=== PATIENT | male | born 1955 | race Caucasian/White ===

== ENCOUNTER 2025-06-05 09:16 | Inpatient (IN) | payer MEDICARE, SELFPAY ==
[2025-06-05] VITALS (20 sets, daily range): BP systolic 126–219; BP diastolic 54–111; PULSE 48–84; RESP 12–22; TEMP 36.6–37.1; O2SAT 91–99; BMI 25.0
--- NOTE | 2025-06-05 | ECHO_ITS ---
Patient Info Name: Renato Rodriguez Age: 70 years : 1955 Gender: Male Ht: 67 in Wt: 167 lbs BSA: 1.91 m2 BP: 179 / 95 mmHg Heart Rhythm: Sinus Rhythm Technical Quality: Good Exam Date: 06/05/2025 2:52 PM Patient Status: I Admit Date: 06/05/2025 Exam Type: CA echo doppler color flow Complete two-dimensional, color flow and Doppler transthoracic echocardiogram is performed. Staff Referring Physician: Jason Arita MD Base Filler: Mya Javier Attending Provider: Dudley Bolaños Summary 1. Complete two-dimensional, color flow and Doppler transthoracic echocardiogram is performed. 2. Left ventricular hypertrophy with preserved systolic function. 3. Grade 1 diastolic noncompliance. 4. Suboptimally visualized aortic valve appears to be mildly stenotic. 5. Trivial amount of pericardial fluid. Left Ventricle Left ventricular chamber dimension is normal. There is mild concentric increased left ventricular wall thickness. The left ventricular diastolic function is grade I diastolic dysfunction. Right Ventricle Right ventricular chamber dimension is normal. Left Atria Left atrial chamber dimension is normal. Right Atria Right atrial chamber dimension is normal. Aortic Valve The aortic valve is trileaflet. There is mild aortic valve sclerosis. There is mild aortic valve stenosis with a peak velocity of 262 cm/s, mean gradient of 15 mmHg, and aortic valve area of 1.7 cm2. Pulmonic Valve The pulmonic valve is not well visualized. Mitral Valve The mitral valve has normal leaflets. There is trace mitral valve regurgitation. Tricuspid Valve The tricuspid valve leaflets are normal. Pericardium/Pleural There is trivial pericardial effusion. Aorta The aortic root size at the sinus of Valsalva is normal. Left Ventricular Outflow Tract Name Value Normal LVOT 2D LVOT Diameter 2.0 cm LVOT Doppler LVOT Peak Velocity 137 cm/s LVOT Peak Gradient 6 mmHg LVOT Mean Gradient 4 mmHg LVOT VTI 37 cm LVOT VTI/AV VTI Ratio 0.6 LVOT Stroke Volume 115 ml LVOT CO 12.6 l/min LVOT CI 6.6 l/min/m2 Pulmonic Valve Name Value Normal RVOT Doppler RVOT Peak Velocity 52 cm/s RVOT Peak Gradient 1 mmHg PV Doppler PV Peak Velocity 123 cm/s PV Peak Gradient 6 mmHg Mitral Valve Name Value Normal MV Diastolic Function MV E Peak Velocity 74 cm/s MV A Peak Velocity 86 cm/s MV E/A 0.9 MV Decel Time (PW) 316 ms MV Annular TDI MV E/e' (Septal) 10.9 MV E/e' (Lateral) 12.0 MV E/e' (Average) 11.4 Aortic Valve Name Value Normal AV Doppler AV Peak Velocity 262 cm/s AV Peak Gradient 26 mmHg AV Mean Gradient 15 mmHg AV VTI 67 cm AV Area (Cont Eq VTI) 1.7 cm2 >=3.0 AV Area (Cont Eq Felipe) 1.6 cm2 AV DI (Felipe) 0.52 AV Regurgitation 2D LVOT Area 3.1 cm2 Ventricles Name Value Normal LV Dimensions 2D/MM IVS Diastolic Thickness (2D) 0.9 cm 0.6-1.0 LVID Diastole (2D) 4.9 cm 4.2-5.8 LVIW Diastolic Thickness (2D) 1.2 cm 0.6-1.0 LVID Systole (2D) 3.4 cm 2.5-4.0 LVOT Diameter 2.0 cm LV Mass (2D Cubed) 183.41 g 88.00-224.00 LV Mass Index (2D Cubed) 96 g/m2 49-115 Relative Wall Thickness (2D) 0.49 <=0.42 LV Fractional Shortening/Ejection Fraction 2D/MM LV Fractional Shortening (2D) 31 % 25-43 LV EF (2D Teichholz) 58 % LV Diastolic Volume (4C MOD) 111 ml LV EF (4C MOD) 51 % LV Diastolic Volume (2C MOD) 124 ml LV EF (2C MOD) 58 % LV Diastolic Volume (BP MOD) 119 ml 62-150 LV Diastolic Volume Index (BP MOD) 62 ml/m2 34-74 LV Systolic Volume (BP MOD) 54 ml 21-61 LV Systolic Volume Index (BP MOD) 28 ml/m2 11-31 LV EF (BP MOD) 55 % 52-72 LV Diastolic Length (4C) 9.0 cm LV Systolic Length (4C) 8.0 cm LV Stroke Volume (4C MOD) 56 ml Atria Name Value Normal LA Dimensions LA Volume (4C A-L) 34 ml LA Volume (BP A-L) 36 ml RA Dimensions RA Systolic Major [place] Length (4C) 5.5 cm 2.1-2.7 RA Area (4C) 19.3 cm2 <=18.0 Report Signatures
--- NOTE | ~2025-06-05 | XR_ITS ---
CHEST RADIOGRAPH, PA AND LATERAL CLINICAL HISTORY: UPPER CHEST PRESSURE . COMPARISON: None available TECHNIQUE: PA and lateral views of the chest. FINDINGS The cardiomediastinal silhouette is unremarkable. The lungs are clear. IMPRESSION: No focal infiltrate or effusion. Reviewed, dictated and finalized at location A.
--- NOTE | 2025-06-05 09:18 | ECG_ITS ---
Test Date: 2025-06-05 09:24:44 Measurements Intervals [place] Rate: 73 P: 60 FL: 165 QRS: 84 QRSD: 102 T: 72 QT: 371 QTc: 410 Interpretive Statements SINUS RHYTHM ANTEROSEPTAL MYOCARDIAL INFARCTION , OF INDETERMINATE AGE Electronically Signed On 06-05-2025 17:25:37 CDT by Vinicius Cehema D.O
[2025-06-05 09:35] LABS: Hematocrit 47.3 % (42.0-52.0); Hemoglobin 15.8 g/dL (14.0-18.0); Immature Granulocyte Percent A 0.4 % (0-0.5); Lymphocytes Absolute Auto 1.30 K/mm3 (0.9-3.2); Mean Corpuscular HGB Conc 33.4 g/dl (32-36); Mean Corpuscular Hemoglobin 30.4 pg (26-34); Mean Corpuscular Volume 91.1 fl (80-100); Nucleated Red Blood Cells Absolute Auto 0.000 K/mm3 (0.0-0.012); Nucleated Red Blood Cells Perc 0.0 % (0.0-0.2); Platelet Count Result 326 k/mm3 (150-375); Red Blood Count 5.19 M/mm3 (4.6-6.20); White Blood Count 8.0 K/mm3 (4.5-10.0)
[2025-06-05 09:48] LABS: INR 1.0; Prothrombin Time 13.0 Seconds (11.1-14.7)
[2025-06-05 09:50] LABS: Partial Thromboplastin Time 29.8 Seconds (22.3-36.8)
[2025-06-05 09:57] LABS: Alanine Aminotransferase 20 U/L (6-50); Albumin Level 4.3 g/dL (3.5-5.1); Alkaline Phosphatase 50 U/L (38-126); Anion Gap 7 mmol/L (4-12); Aspartate Amino Transferase 25 U/L (17-59); Bilirubin,Total 0.6 mg/dL (0.2-1.3); Blood Urea Nitrogen 13 mg/dL (9-20); Calcium 9.5 mg/dL (8.4-10.2); Carbon Dioxide 28 mmol/L (22-30); Chloride 104 mmol/L (98-107); Estimated CRCL calculation 62 ml/min; Estimated Glomerular Filt Rate > 60; Glucose 134 mg/dL (65-110); Lipase 205 U/L (23-300); Potassium 4.3 mmol/L (3.4-5.0); Sodium 139 mmol/L (137-145); Total Protein 7.6 g/dL (6.3-8.2)
[2025-06-05 10:06] LABS: Troponin I 0.056 ng/mL (0.000-0.034)
--- NOTE | 2025-06-05 10:07 | ED.CHESTPAIN ---
HPI - Chest Pain General Chief Complaint: Chest Pain Stated Complaint: CP Time Seen by Provider: 06/05/25 09:28 History of Present Illness HPI narrative: Patient is a 70-year-old male who presents ER with chest pain. Reports he has been developing exertional chest pain over last 2 weeks. When he walks up a hill or up stairs or out to the car he develops pressure that radiates to shoulders. He will then sit down for 1-2 minutes and symptoms go away. No history of AL in the past. He is a daily smoker. No chest pain currently. No nausea or diaphoresis. Related Data Home Medications ?Medication ?Instructions ?Recorded ?Confirmed ?Last Taken ?Type No Home Medications 06/05/25 06/05/25 Unknown History Allergies Allergy/AdvReac Type Severity Reaction Status Date / Time acetaminophen (From Percocet) Allergy Intermediate Itching Verified 06/05/25 09:35 oxycodone (From Percocet) Allergy Intermediate Itching Verified 06/05/25 09:35 Review of Systems Review of Systems: All systems reviewed & are unremarkable except as noted in HPI and below Constitutional: Constitutional: Reports no additional constitutional complaints Cardiovascular: Cardiovascular: Reports no additional cardiovascular complaints Respiratory: Respiratory: Reports no additional respiratory complaints Gastrointestinal: Gastrointestinal: Reports no additional gastrointestinal complaints Musculoskeletal: Musculoskeletal: Reports no additional musculoskeletal complaints PMFSH Past Medical History Medical History (Updated 06/05/25 @ 19:42 by Jason Arita MD) No pertinent past medical history Surgical History Surgical History (Updated 06/05/25 @ 19:39 by Jason Arita MD) No history of previous surgery Social History Social History Smoking packs per day: 0.5 Smoking cigarettes per day: 10.0 Years smoked: 15 Smoking pack-years: 7.50 Smoking status: Current every day smoker Tobacco type: cigarettes Lack of Transportation: No Lack of Food: Never True Current Housing: I Have Housing Concerned About Future Housing: No Difficulty Paying Gas/Electric Bills: No Difficulty Paying for Meds: No Currently Unemployed: No Education: High School Diploma/GED Difficulty w/ Childcare or Family Care: No Spiritual care concerns: No Exam Narrative: GENERAL: Well-appearing, well-nourished, and in no acute distress. HEAD: Normocephalic, atraumatic. ENT: Mucous membranes moist. NECK: Supple. CHEST: Clear to auscultation. No respiratory distress. HEART: Regular rate and rhythm. Normal peripheral pulses. ABDOMEN: Soft, nontender, nondistended. EXTREMITIES: Normal range of motion. No edema. SKIN: Warm, dry, no rash. NEURO: Alert and oriented x3. PSYCH: Normal mood and affect. Course Course Emergency Course: 1234: Dr. Arguelles has seen the patient and would like him on a heparin gtt. Admit to hospitalist service. Vital Signs Vital signs: Vital Signs Temperature 97.9 F 06/05/25 09:23 Pulse Rate 82 06/05/25 09:23 Respiratory Rate 16 06/05/25 09:23 Blood Pressure 215/97 H 06/05/25 09:23 Pulse Oximetry 97 06/05/25 09:23 Oxygen Delivery Room Air 06/05/25 09:23 Temperature 98.1 F 06/05/25 15:50 Pulse Rate 78 06/05/25 18:00 Respiratory Rate 22 H 06/05/25 15:50 Blood Pressure 185/81 H 06/05/25 16:24 Pulse Oximetry 97 06/05/25 15:50 Oxygen Delivery Room Air 06/05/25 09:32 MDM - Chest Pain Lab Data 06/05/25 09:26 06/05/25 09:26 Labs: Lab Results 06/05/25 Range/Units 09:26 WBC 8.0 (4.5-10.0) K/mm3 RBC 5.19 (4.6-6.20) M/mm3 Hgb 15.8 (14.0-18.0) g/dL Hct 47.3 (42.0-52.0) % MCV 91.1 (80-100) fl MCH 30.4 (26-34) pg MCHC 33.4 (32-36) g/dl RDW 12.8 (11.5-14.5) % Plt Count 326 (150-375) k/mm3 MPV 8.9 (7.4-10.4) fl Immature Gran % (Auto) 0.4 (0-0.5) % Neut % (Auto) 75.1 H (45.5-73.1) % Lymph % (Auto) 16.2 L (18.3-44.2) % [place] % (Auto) 7.3 (2.6-8.5) % Eos % (Auto) 0.6 (0-4.4) % Baso % (Auto) 0.4 (0.2-1.2) % Lymph # (Auto) 1.30 (0.9-3.2) K/mm3 [place] # (Auto) 0.6 (0.1-0.6) K/mm3 Eos # (Auto) 0.1 (0-0.3) K/mm3 Baso # (Auto) 0.0 (0.0-0.1) K/mm3 Abs Immat Gran (auto) 0.03 (0.00-0.031) K/mm3 Absolute Neuts (auto) 6.0 (1.3-6.7) K/mm3 Absolute Nucleated RBC 0.000 (0.0-0.012) K/mm3 Nucleated RBC % 0.0 (0.0-0.2) % PT 13.0 (11.1-14.7) Seconds INR 1.0 APTT 29.8 (22.3-36.8) Seconds Sodium 139 (137-145) mmol/L Potassium 4.3 (3.4-5.0) mmol/L Chloride 104 (98-107) mmol/L Carbon Dioxide 28 (22-30) mmol/L Anion Gap 7 (4-12) mmol/L BUN 13 (9-20) mg/dL Creatinine 0.89 (0.7-1.3) mg/dL Estim Creat Clear Calc 62 ml/min Estimated GFR > 60 (59 - ) Glucose 134 H (65-110) mg/dL Calcium 9.5 (8.4-10.2) mg/dL Total Bilirubin 0.6 (0.2-1.3) mg/dL AST 25 (17-59) U/L ALT 20 (6-50) U/L Alkaline Phosphatase 50 (38-126) U/L Troponin I 0.056 H* (0.000-0.034) ng/mL Total Protein 7.6 (6.3-8.2) g/dL Albumin 4.3 (3.5-5.1) g/dL Lipase 205 (23-300) U/L Imaging Data Radiologist's impression: ITS Impressions Chest X-Ray 06/05/25 10:27 IMPRESSION: No focal infiltrate or effusion. ECG Data EKG #1: ECG completion date: 06/05/25 ECG completion time: 09:24 EKG Interpretation: normal rate, sinus rhythm, non-specific ST changes, normal QRS, normal QT and left axis Critical Care Time Critical Care Time Critical Care Time: Yes Total Critical Care Time: 35 Discharge Plan Discharge Clinical Impression: NSTEMI (non-ST elevated myocardial infarction) Patient Disposition: Still a Patient Condition: Stable
[2025-06-05] MEDS: METOPROLOL TARTRATE 25 MG TABLET PO ×2 (10:24→20:13)
[2025-06-05] MEDS: ASPIRIN 81 MG CHEWABLE TABLET 324 MG PO (10:24)
[2025-06-05] MEDS: ATORVASTATIN 40 MG TABLET PO (10:24)
--- NOTE | 2025-06-05 12:07 | ECG_ITS ---
Test Date: 2025-06-05 12:12:01 Measurements Intervals [place] Rate: 63 P: 48 MN: 175 QRS: 81 QRSD: 110 T: 78 QT: 420 QTc: 433 Interpretive Statements SINUS RHYTHM ANTEROSEPTAL MYOCARDIAL INFARCTION , OF INDETERMINATE AGE Electronically Signed On 06-05-2025 17:29:50 CDT by Vinicius Cheema D.O
--- NOTE | 2025-06-05 12:12 | P.CONCA_ITS ---
Assessment and Plan Assessment and plan (1) NSTEMI (non-ST elevated myocardial infarction): Code(s): I21.4 - Non-ST elevation (NSTEMI) myocardial infarction Status: Acute (2) Hypertensive urgency: Code(s): I16.0 - Hypertensive urgency Status: Acute Plan NSTEMI Hypertensive urgency-SBP at presentation was in the 200s Plan: NSTEMI could be type 1 or type 2 (supply demand mismatch due to uncontrolled hypertension) Start heparin drip Aspirin 325 mg p.o. once followed by 81 mg daily Start atorvastatin 80 mg daily Start metoprolol 25 mg p.o. b.i.d. If blood pressure not controlled with metoprolol, add HCTZ or amlodipine Sublingual nitro p.r.n. for chest pain Check FLP Trend troponin to peak TTE today to evaluate LVEF and for any regional wall motion abnormalities Keep NPO at midnight for cardiac catheterization in a.m. History of Present Illness History of Present Illness Consult date/time: 06/05/25 12:12 Reason For Visit: CP Narrative: 70-year-old male with no significant past medical history presents with chief complaints of chest pain. He reports exertional chest pain for the past few weeks. The pain is located across the front of his chest with radiation to both shoulders. Activity worsens the pain and rest relieves the pain. Pain is not associated with shortness of breath or diaphoresis. He states that the pain is now coming on with less exertion than at the time of onset. Today his son was visiting him and urged patient to get evaluated. He states that his only medical history is a diagnosis of blood pressure in 2020 at the time of evaluation for vertigo. At that time he was prescribed antihypertensive medication for for some time which was later stopped as his blood pressure was controlled. He does not check his blood pressure regularly. In the ER patient's blood pressure was noted to be high with SBP in the 200s. Troponin is elevated 0.056 and Cardiology is consulted for further recommendations. Workup: Troponin: 0.056 EKG: Sinus rhythm, anteroseptal infarct age indeterminate Chest x-ray: No acute pathology Review of Systems 2 Review of Systems: A complete review of systems was performed and negative other than those mentioned in the HPI. Meds Home Medications and Allergies Allergies Allergy/AdvReac Type Severity Reaction Status Date / Time acetaminophen (From Percocet) Allergy Intermediate Itching Verified 06/05/25 09:35 oxycodone (From Percocet) Allergy Intermediate Itching Verified 06/05/25 09:35 Vital Signs Vital Signs - 24 hr 06/05/25 09:23 06/05/25 09:27 06/05/25 09:28 Temperature 36.6 C Pulse Rate 82 81 81 Respiratory Rate 16 15 12 Blood Pressure 215/97 H 219/87 H 211/111 H Pulse Oximetry 97 97 94 Oxygen Delivery Room Air 06/05/25 09:30 06/05/25 09:32 06/05/25 10:24 Temperature Pulse Rate 79 84 Respiratory Rate 18 Blood Pressure 201/102 H Pulse Oximetry 93 Oxygen Delivery Room Air 06/05/25 10:50 Temperature 36.6 C Pulse Rate 71 Respiratory Rate 16 Blood Pressure 194/87 H Pulse Oximetry 94 Oxygen Delivery Exam 2 Narrative: General: Alert oriented x3, no acute distress Neck: Supple, no JVD Chest: Bilaterally clear to auscultation, no rales or rhonchi Cardiac: S1, S2 +, regular rate, regular rhythm, no murmurs or rubs Extremities: No pedal edema, no skin rash Neurologic: Alert and oriented x3, no focal neurological deficits Results Labs and Meds 06/05/25 09:26 06/05/25 09:26 Lab results: Cardiac Enzymes 06/05/25 Range/Units 09:26 AST 25 (17-59) U/L Troponin I 0.056 H* (0.000-0.034) ng/mL Coagulation 06/05/25 Range/Units 09:26 PT 13.0 (11.1-14.7) Seconds APTT 29.8 (22.3-36.8) Seconds CBC 06/05/25 Range/Units 09:26 WBC 8.0 (4.5-10.0) K/mm3 RBC 5.19 (4.6-6.20) M/mm3 Hgb 15.8 (14.0-18.0) g/dL Hct 47.3 (42.0-52.0) % Plt Count 326 (150-375) k/mm3 Lymph # (Auto) 1.30 (0.9-3.2) K/mm3 [place] # (Auto) 0.6 (0.1-0.6) K/mm3 Eos # (Auto) 0.1 (0-0.3) K/mm3 Baso # (Auto) 0.0 (0.0-0.1) K/mm3 Comprehensive Metabolic Panel 06/05/25 Range/Units 09:26 Sodium 139 (137-145) mmol/L Potassium 4.3 (3.4-5.0) mmol/L Chloride 104 (98-107) mmol/L Carbon Dioxide 28 (22-30) mmol/L BUN 13 (9-20) mg/dL Creatinine 0.89 (0.7-1.3) mg/dL Glucose 134 H (65-110) mg/dL Calcium 9.5 (8.4-10.2) mg/dL AST 25 (17-59) U/L ALT 20 (6-50) U/L Alkaline Phosphatase 50 (38-126) U/L Total Protein 7.6 (6.3-8.2) g/dL Albumin 4.3 (3.5-5.1) g/dL Patient Weight 06/05/25 23:59 Weight 75.8 kg
[2025-06-05 12:46] LABS: Troponin I 0.052 ng/mL (0.000-0.034)
[2025-06-05] MEDS: HEPARIN SOD/D5W 100 UNITS/ML 25,000 UNITS/250 ML BAG 9 UNITS IV CONT (13:00)
--- NOTE | 2025-06-05 13:36 | PM.IMHP ---
H&P: HPI History of Present Illness Date/Time: 06/05/25 13:36 Chief Complaint: Chest Pain Narrative: 70 y/o M with no significant past medical history presents here with chest pain. The patient presents here from home. He reports onset of exertional chest pain a few weeks ago. He describes the pain as squeezing, radiation into bilateral shoulders and upper back, intermittent, resolves after 1-2 minutes of rest and will last for as long as he is exerting himself. He reports the chest pain has slightly evolved over the last few weeks and now requires less exertion before onset. Example provided was that he walks his dog for 30 minutes everyday and at first he took 20 mins of exertion before it started, now occurring within 3-4 minutes. Denies shortness of breath, diaphoresis, nausea/vomiting, or dizziness with episodes. He reports no significant cardiac history beyond hypertension. This resolved and he was taken off of his antihypertensives. Initial VS at presentation: 97.9? F, HR 82, R 16, 215/97, and 97% on RA. ED workup showed: No leukocytosis, no anemia, normal coags, no significant electrolyte derangements, glucose 134, initial troponin 0.056 (repeat 0.052). Initial EKG showed sinus rhythm, anteroseptal UT of indeterminate age, weight 73 (no previous EKG available for comparison). CXR showed no focal infiltrate or effusion. Review of Systems Review of Systems: All systems reviewed & are unremarkable except as noted in HPI and below PMFSH Past Medical History Medical History No pertinent past medical history Surgical History Surgical History No history of previous surgery Social History Social History Smoking packs per day: 0.5 Smoking cigarettes per day: 10.0 Years smoked: 15 Smoking pack-years: 7.50 Smoking status: Current every day smoker Tobacco type: cigarettes Lack of Transportation: No Lack of Food: Never True Current Housing: I Have Housing Concerned About Future Housing: No Difficulty Paying Gas/Electric Bills: No Difficulty Paying for Meds: No Currently Unemployed: No Education: High School Diploma/GED Difficulty w/ Childcare or Family Care: No Spiritual care concerns: No Meds Home Medications and Allergies Home Medications ?Medication ?Instructions ?Recorded ?Confirmed ?Type No Home Medications 06/05/25 06/05/25 History Allergies Allergy/AdvReac Type Severity Reaction Status Date / Time acetaminophen (From Percocet) Allergy Intermediate Itching Verified 06/05/25 09:35 oxycodone (From Percocet) Allergy Intermediate Itching Verified 06/05/25 09:35 Vital Signs Vital Signs - 24 hr 06/05/25 09:23 06/05/25 09:27 06/05/25 09:28 Temperature 97.9 F Pulse Rate 82 81 81 Respiratory Rate 16 15 12 Blood Pressure 215/97 H 219/87 H 211/111 H Pulse Oximetry 97 97 94 Oxygen Delivery Room Air 06/05/25 09:30 06/05/25 09:32 06/05/25 10:24 Temperature Pulse Rate 79 84 Respiratory Rate 18 Blood Pressure 201/102 H Pulse Oximetry 93 Oxygen Delivery Room Air 06/05/25 10:50 06/05/25 11:31 06/05/25 12:15 Temperature 97.8 F 97.8 F 97.9 F Pulse Rate 71 64 65 Respiratory Rate 16 18 18 Blood Pressure 194/87 H 198/96 H 199/98 H Pulse Oximetry 94 97 97 Oxygen Delivery 06/05/25 13:02 Temperature 97.9 F Pulse Rate 61 Respiratory Rate 20 Blood Pressure 179/95 H Pulse Oximetry 97 Oxygen Delivery Exam Const: General: comfortable and no acute distress Other: , male, elderly, nontoxic appearance HENMT: Face/Nose/Sinus: Normal nares present Mouth: Yes moist mucous membranes Eyes: General: appearance normal, both eyes and all related structures Sclera: sclerae normal Pupils: Equal, round and reactive pupils present EOM: EOMs intact bilaterally Resp: Effort & Inspection: normal respiratory effort Auscultation: clear to auscultation bilaterally Cardio: Rate: regular rate Rhythm: regular rhythm Other: S1-S2 present without murmur, rub, ectopy GI: Other: Abdomen soft, nondistended, nontender. Normoactive bowel sounds in all quadrants. Skin: General skin exam: normal color and no rashes or lesions noted Wounds: no wounds Neuro: Speech: normal speech Motor exam (neuro): 5/5 motor strength present throughout Sensory Exam: normal sensation Other: A&O x4 Extrem: General: normal to inspection Psych: Mental Status: mental status grossly normal Affect: normal affect Other: Good insight and judgment, pleasant H&P: Results Labs Labs: Short CBC 06/05/25 Range/Units 09:26 WBC 8.0 (4.5-10.0) K/mm3 Hgb 15.8 (14.0-18.0) g/dL Hct 47.3 (42.0-52.0) % Plt Count 326 (150-375) k/mm3 BMP 06/05/25 09:26 Sodium 139 Potassium 4.3 Chloride 104 Carbon Dioxide 28 BUN 13 Creatinine 0.89 Glucose 134 H Calcium 9.5 Cardiac Enzymes 06/05/25 06/05/25 Range/Units 09:26 12:12 Troponin I 0.056 H* 0.052 H* (0.000-0.034) ng/mL Liver Function 06/05/25 Range/Units 09:26 Total Bilirubin 0.6 (0.2-1.3) mg/dL AST 25 (17-59) U/L ALT 20 (6-50) U/L Alkaline Phosphatase 50 (38-126) U/L Albumin 4.3 (3.5-5.1) g/dL Assessment and Plan Assessment and plan (1) NSTEMI (non-ST elevated myocardial infarction): Code(s): I21.4 - Non-ST elevation (NSTEMI) myocardial infarction Status: Acute Assessment and Plan: - EKG, initial: sinus rhythm, anteroseptal UT of indeterminate age, weight 73 (no previous EKG available for comparison, awaiting formal read). - EKG, repeat (1): No significant changes when compared to EKG done earlier same day (awaiting formal read). - CXR: No focal infiltrate or effusion - Troponin: 0.056 -> 0.052 -> 0.052 - ASA 324 given, continue as 81 daily - SL nitro PRN - heparin gtt initiated on 06/05 - cardiology consulted NSTEMI may be type 1 or type 2 (secondary to uncontrolled hypertension) ASA 324 -> 81 daily Start metoprolol 25 mg b.i.d., if uncontrolled add HCTZ or amlodipine Check FLP Trend troponin to peak TTE on 06/05 NPO at midnight for cardiac catheterization in a.m. - check lipid panel and A1c - telemetry monitoring (2) Hypertensive urgency: Code(s): I16.0 - Hypertensive urgency Status: Acute Assessment and Plan: - removed history of hypertension, no longer on daily antihypertensive - initial BP upon evaluation was 215/97, verified via repeat - given 1st dose of metoprolol 25 mg, BP now 179/95. Continue as 25 mg b.i.d.. Cardiology recommended HCTZ or amlodipine if BP uncontrolled with metoprolol. - monitor Plan Diet: Heart healthy, NPO midnight GI Prophylaxis: n/a DVT Prophylaxis: Heparin gtt IV fluids: None Lines/Tubes: Peripheral IV Code Status: Full code Quality VTE Prophylaxis VTE prophylaxis: pharmacologic ordered Hospitalist MIPS Advance Care Plan I have confirmed that the patient's Advanced Care Plan is present, code status is documented, or surrogate decision maker is listed in patient medical record.: Yes Medication Reconciliation I have utilized all available resources to obtain, update and review the patients current medications (includes all prescriptions, OTC, herbals, cannabis, and nutritional supplements).: Yes
--- NOTE | 2025-06-05 15:55 | ADMGEN ---
This patient, Renato Rodriguez, was admitted to IMU Room 210-01. Patient/family oriented to hospital policies and general routines including ID bracelet, bed and alarms, visiting hours, pain management, procedures, bathroom and other care routines, personal items, smoking policy, room service/diet, and visiting hours. Information on how to activate the Rapid Response Team has been discussed. Patient/Family are encouraged to report perceived risks to care and to ask questions if they do not understand what they are told or what they should do.
[2025-06-05 17:57] LABS: Troponin I 0.052 ng/mL (0.000-0.034)
--- NOTE | 2025-06-05 18:29 | ECG_ITS ---
Test Date: 2025-06-05 18:29:06 Measurements Intervals [place] Rate: 64 P: 79 UT: 181 QRS: 87 QRSD: 102 T: 83 QT: 403 QTc: 417 Interpretive Statements SINUS RHYTHM ANTEROSEPTAL MYOCARDIAL INFARCTION OF INDETERMINATE AGE Compared to ECG 06/05/2025 12:12:01 No significant changes Electronically Signed On 06-06-2025 09:18:45 CDT by Vinicius Cheema D.O
[2025-06-05 20:01] LABS: Partial Thromboplastin Time 56.5 Seconds (22.3-36.8)
[2025-06-06] VITALS (35 sets, daily range): BP systolic 111–209; BP diastolic 58–109; PULSE 48–95; RESP 16–23; TEMP 36.4–36.9; O2SAT 91–98
[2025-06-06 02:18] LABS: Hematocrit 42.9 % (42.0-52.0); Hemoglobin 14.5 g/dL (14.0-18.0); Immature Granulocyte Percent A 0.3 % (0-0.5); Lymphocytes Absolute Auto 2.27 K/mm3 (0.9-3.2); Mean Corpuscular HGB Conc 33.8 g/dl (32-36); Mean Corpuscular Hemoglobin 30.5 pg (26-34); Mean Corpuscular Volume 90.3 fl (80-100); Nucleated Red Blood Cells Absolute Auto 0.000 K/mm3 (0.0-0.012); Nucleated Red Blood Cells Perc 0.0 % (0.0-0.2); Platelet Count Result 267 k/mm3 (150-375); Red Blood Count 4.75 M/mm3 (4.6-6.20); White Blood Count 8.7 K/mm3 (4.5-10.0)
[2025-06-06 02:55] LABS: Alanine Aminotransferase 17 U/L (6-50); Albumin Level 3.7 g/dL (3.5-5.1); Alkaline Phosphatase 49 U/L (38-126); Anion Gap 4 mmol/L (4-12); Aspartate Amino Transferase 24 U/L (17-59); Bilirubin,Total 0.4 mg/dL (0.2-1.3); Blood Urea Nitrogen 16 mg/dL (9-20); Calcium 9.0 mg/dL (8.4-10.2); Carbon Dioxide 28 mmol/L (22-30); Chloride 102 mmol/L (98-107); Cholesterol 187 mg/dL (0-200); Estimated CRCL calculation 64 ml/min; Estimated Glomerular Filt Rate > 60; Glucose 104 mg/dL (65-110); HDL Direct 46 mg/dL; Potassium 4.1 mmol/L (3.4-5.0); Sodium 134 mmol/L (137-145); Total Protein 6.5 g/dL (6.3-8.2); Triglycerides 88 mg/dL (<150)
[2025-06-06 03:15] LABS: Hemoglobin A1C 6.3 % (<5.7)
[2025-06-06 03:30] LABS: Partial Thromboplastin Time 187.2 Seconds (22.3-36.8)
--- NOTE | 2025-06-06 07:08 | P.PNCA_ITS ---
Progress Note: A&P Assessment and Plan (1) NSTEMI (non-ST elevated myocardial infarction): Code(s): I21.4 - Non-ST elevation (NSTEMI) myocardial infarction Status: Acute (2) Hypertensive urgency: Code(s): I16.0 - Hypertensive urgency Status: Acute Plan NSTEMI Hypertensive urgency-SBP at presentation was in the 200s Plan: NSTEMI could be type 1 or type 2 (supply demand mismatch due to uncontrolled hypertension) Recommend cardiac catheterization to further evaluate his coronaries and possible PCI. Risks and benefits of the procedures were discussed in detail with patient and he is willing to proceed TTE shows normal LVEF of 60%, mild , mild MR Continue heparin drip Continue aspirin 81 mg daily Continue atorvastatin 80 mg daily Continue metoprolol 25 mg p.o. b.i.d. Sublingual nitro p.r.n. for chest pain Check and replace electrolytes to keep K>4 and Mg>2 Subjective Date/time seen: 06/06/25 07:08 Interval history: Reason for encounter: NSTEMI, Interval history: Patient denies any recurrence of chest pain. Telemetry shows sinus rhythm. Blood pressure better controlled with SBP in the 110s to 150s range. Review of Systems Cardiovascular: Comments: As per HPI Respiratory: Comments: As per HPI Exam Narrative: General: Alert oriented x3, no acute distress Neck: Supple, no JVD Chest: Bilaterally clear to auscultation, no rales or rhonchi Cardiac: S1, S2 +, regular rate, regular rhythm, no murmurs or rubs Extremities: No pedal edema, no skin rash Neurologic: Alert and oriented x3, no focal neurological deficits Objective Data Vital Signs Vital Signs: Vital Signs - 24 hr 06/05/25 09:23 06/05/25 09:27 06/05/25 09:28 Temperature 36.6 C Pulse Rate 82 81 81 Respiratory Rate 16 15 12 Blood Pressure 215/97 H 219/87 H 211/111 H Pulse Oximetry 97 97 94 Oxygen Delivery Room Air 06/05/25 09:30 06/05/25 09:32 06/05/25 10:24 Temperature Pulse Rate 79 84 Respiratory Rate 18 Blood Pressure 201/102 H Pulse Oximetry 93 Oxygen Delivery Room Air 06/05/25 10:50 06/05/25 11:31 06/05/25 12:15 Temperature 36.6 C 36.6 C 36.6 C Pulse Rate 71 64 65 Respiratory Rate 16 18 18 Blood Pressure 194/87 H 198/96 H 199/98 H Pulse Oximetry 94 97 97 Oxygen Delivery 06/05/25 13:02 06/05/25 14:00 06/05/25 14:31 Temperature 36.6 C 36.6 C 36.6 C Pulse Rate 61 64 54 L Respiratory Rate 20 18 19 Blood Pressure 179/95 H 189/90 H 187/88 H Pulse Oximetry 97 99 97 Oxygen Delivery 06/05/25 15:22 06/05/25 15:30 06/05/25 15:50 Temperature 36.6 C 36.7 C Pulse Rate 67 65 55 L Respiratory Rate 21 H 19 22 H Blood Pressure 184/86 H 207/99 H Pulse Oximetry 96 96 97 Oxygen Delivery 06/05/25 16:24 06/05/25 18:00 06/05/25 20:00 Temperature 36.7 C Pulse Rate 78 66 Respiratory Rate 18 Blood Pressure 185/81 H 134/69 Pulse Oximetry 93 Oxygen Delivery 06/05/25 20:00 06/05/25 20:00 06/05/25 20:13 Temperature Pulse Rate 78 62 60 Respiratory Rate Blood Pressure Pulse Oximetry 97 Oxygen Delivery Room Air 06/05/25 22:00 06/05/25 23:35 06/06/25 00:00 Temperature 37.1 C Pulse Rate 48 L 58 L 49 L Respiratory Rate 16 Blood Pressure 126/54 L Pulse Oximetry 91 97 Oxygen Delivery Room Air 06/06/25 00:00 06/06/25 02:00 06/06/25 03:16 Temperature Pulse Rate 50 L 56 L 52 L Respiratory Rate Blood Pressure Pulse Oximetry 97 Oxygen Delivery Room Air 06/06/25 04:00 06/06/25 04:00 06/06/25 06:00 Temperature 36.8 C Pulse Rate 63 48 L 56 L Respiratory Rate 18 Blood Pressure 111/58 L Pulse Oximetry 94 Oxygen Delivery Intake/Output Intake/Output: Intake & Output 06/03/25 06/04/25 06/05/25 06/06/25 23:59 23:59 23:59 23:59 Intake Total 405.7 199.8 Output Total 300 Balance 405.7 -100.2 Meds/Results Medications: Active Medications Generic Name Dose Route Start Last Admin Trade Name Freq PRN Reason Stop Dose Admin Aspirin 81 mg 06/06/25 09:00 Aspirin 81 Mg Enteric Tablet PO QAM HEMAL Atorvastatin Calcium 40 mg 06/06/25 09:00 Atorvastatin 40 Mg Tablet PO DAILY HEMAL Heparin Sodium (Porcine) 4,000 units 06/05/25 12:38 Heparin Sodium 5,000 Units/Ml Vial IV PUSH PRN PRN aPTT less than 55 seconds Heparin Sodium (Porcine) 3,000 units 06/05/25 12:39 06/05/25 20:12 Heparin Sodium 5,000 Units/Ml Vial IV PUSH 3,000 units PRN PRN Administration aPTT 55 - 70 seconds Heparin Sodium/Dextrose 25,000 units in 250 mls @ 9 mls/hr 06/05/25 12:40 06/06/25 04:33 Heparin Sodium/D5w 100 Units/Ml IV CONT 900 units/hr .Q24H HEMAL 9 mls/hr Titration Protocol 900 UNITS/HR Metoprolol Tartrate 25 mg 06/05/25 21:00 06/05/25 20:13 Metoprolol Tartrate 25 Mg Tablet PO 25 mg Q12HR HEMAL Administration Nitroglycerin 0.4 mg 06/05/25 11:03 Nitroglycerin Sl 0.4 Mg Tablet SUBLINGUAL Q5MIN PRN Chest Pain Ondansetron HCl 4 mg 06/05/25 11:03 Ondansetron Inj 4 Mg/2 Ml Vial IV PUSH Q4H PRN Nausea Perflutren Lipid Microsphere 0 ml 06/05/25 13:09 Perflutren Lipid Microspheres 1.5 Ml Vial Diluted To 10 Ml Total Volume IV PUSH 06/08/25 13:09 ONCE PRN adequate visualization Protocol Radiology Results: ITS Impressions Chest X-Ray 06/05/25 10:27 IMPRESSION: No focal infiltrate or effusion. Labs Labs: Laboratory Results - last 24 hr 06/05/25 06/05/25 06/05/25 09:26 12:12 17:12 WBC 8.0 RBC 5.19 Hgb 15.8 Hct 47.3 MCV 91.1 MCH 30.4 MCHC 33.4 RDW 12.8 Plt Count 326 MPV 8.9 Immature Gran % (Auto) 0.4 Neut % (Auto) 75.1 H Lymph % (Auto) 16.2 L [place] % (Auto) 7.3 Eos % (Auto) 0.6 Baso % (Auto) 0.4 Lymph # (Auto) 1.30 [place] # (Auto) 0.6 Eos # (Auto) 0.1 Baso # (Auto) 0.0 Abs Immat Gran (auto) 0.03 Absolute Neuts (auto) 6.0 Absolute Nucleated RBC 0.000 Nucleated RBC % 0.0 PT 13.0 INR 1.0 APTT 29.8 Sodium 139 Potassium 4.3 Chloride 104 Carbon Dioxide 28 Anion Gap 7 BUN 13 Creatinine 0.89 Estim Creat Clear Calc 62 Estimated GFR > 60 Glucose 134 H Hemoglobin A1c Calcium 9.5 Total Bilirubin 0.6 AST 25 ALT 20 Alkaline Phosphatase 50 Troponin I 0.056 H* 0.052 H* 0.052 H* Total Protein 7.6 Albumin 4.3 Triglycerides Cholesterol LDL Cholesterol Direct HDL Direct Lipase 205 06/05/25 06/06/25 06/06/25 19:33 02:06 03:16 WBC 8.7 RBC 4.75 Hgb 14.5 Hct 42.9 MCV 90.3 MCH 30.5 MCHC 33.8 RDW 12.7 Plt Count 267 MPV 8.7 Immature Gran % (Auto) 0.3 Neut % (Auto) 62.0 Lymph % (Auto) 26.2 [place] % (Auto) 9.2 H Eos % (Auto) 1.8 Baso % (Auto) 0.5 Lymph # (Auto) 2.27 [place] # (Auto) 0.8 H Eos # (Auto) 0.2 Baso # (Auto) 0.0 Abs Immat Gran (auto) 0.03 Absolute Neuts (auto) 5.4 Absolute Nucleated RBC 0.000 Nucleated RBC % 0.0 PT INR APTT 56.5 H 187.2 H* Sodium 134 L Potassium 4.1 Chloride 102 Carbon Dioxide 28 Anion Gap 4 BUN 16 Creatinine 0.87 Estim Creat Clear Calc 64 Estimated GFR > 60 Glucose 104 Hemoglobin A1c 6.3 H Calcium 9.0 Total Bilirubin 0.4 AST 24 ALT 17 Alkaline Phosphatase 49 Troponin I Total Protein 6.5 Albumin 3.7 Triglycerides 88 Cholesterol 187 LDL Cholesterol Direct 99 HDL Direct 46 Lipase Imaging My impression: TTE: Normal LVEF of 60%, grade 1 diastolic dysfunction, mild aortic stenosis, mild mitral regurgitation
[2025-06-06] MEDS: ATORVASTATIN 40 MG TABLET PO (08:34)
[2025-06-06] MEDS: ASPIRIN 81 MG ENTERIC TABLET PO (08:34)
--- NOTE | 2025-06-06 09:53 | P.SEDATION_ITS ---
Moderate Sedation Note-Pt Data Patient Data Allergies Allergy/AdvReac Type Severity Reaction Status Date / Time acetaminophen (From Percocet) Allergy Intermediate Itching Verified 06/05/25 09:35 oxycodone (From Percocet) Allergy Intermediate Itching Verified 06/05/25 09:35 Home Medications ?Medication ?Instructions ?Recorded ?Confirmed ?Type No Home Medications 06/05/25 06/05/25 History Current Medications: Active Medications Aspirin (Aspirin 81 Mg Enteric Tablet) 81 mg PO QAM [facility] Last Admin: 06/06/25 08:34 Dose: 81 mg Atorvastatin Calcium (Atorvastatin 40 Mg Tablet) 40 mg PO DAILY [facility] Last Admin: 06/06/25 08:34 Dose: 40 mg Heparin Sodium (Porcine) (Heparin Sodium 5,000 Units/Ml Vial) 4,000 units IV PUSH PRN PRN PRN Reason: aPTT less than 55 seconds Heparin Sodium (Porcine) (Heparin Sodium 5,000 Units/Ml Vial) 3,000 units IV PUSH PRN PRN PRN Reason: aPTT 55 - 70 seconds Last Admin: 06/05/25 20:12 Dose: 3,000 units Heparin Sodium/Dextrose (Heparin Sodium/D5w 100 Units/Ml) 25,000 units in 250 mls @ 9 mls/hr IV CONT .Q24H HEMAL; Protocol Last Titration: 06/06/25 04:33 Dose: 900 units/hr, 9 mls/hr Metoprolol Tartrate (Metoprolol Tartrate 25 Mg Tablet) 25 mg PO Q12HR [facility] Last Admin: 06/06/25 08:08 Dose: Not Given Nitroglycerin (Nitroglycerin Sl 0.4 Mg Tablet) 0.4 mg SUBLINGUAL Q5MIN PRN PRN Reason: Chest Pain Ondansetron HCl (Ondansetron Inj 4 Mg/2 Ml Vial) 4 mg IV PUSH Q4H PRN PRN Reason: Nausea Perflutren Lipid Microsphere (Perflutren Lipid Microspheres 1.5 Ml Vial Diluted To 10 Ml Total Volume) 0 ml IV PUSH ONCE PRN; Protocol PRN Reason: adequate visualization Stop: 06/08/25 13:09 Sedation/Anesthesia: No previous sedation/anesthesia problems (including family history). [facility] Past Medical History Medical History No pertinent past medical history Surgical History Surgical History No history of previous surgery Social History Social History Smoking packs per day: 0.5 Smoking cigarettes per day: 10.0 Years smoked: 15 Smoking pack-years: 7.50 Smoking status: Current every day smoker Tobacco type: cigarettes Lack of Transportation: No Lack of Food: Never True Current Housing: I Have Housing Concerned About Future Housing: No Difficulty Paying Gas/Electric Bills: No Difficulty Paying for Meds: No Currently Unemployed: No Education: High School Diploma/GED Difficulty w/ Childcare or Family Care: No Spiritual care concerns: No Mod Sed Physical Exam Physical Exam Pre Procedural Exam: Normal: Lungs, Heart Rate and Heart Rhythm Hours since solid foods: 12 Hours since liquid intake: 12 Mallampati Classification: class III Internal Medicine - PN: Obj Da Vital Signs Vital Signs: Vital Signs - 24 hr 06/05/25 10:24 06/05/25 10:50 06/05/25 11:31 Temperature 36.6 C 36.6 C Pulse Rate 84 71 64 Respiratory Rate 16 18 Blood Pressure 194/87 H 198/96 H Pulse Oximetry 94 97 Oxygen Delivery 06/05/25 12:15 06/05/25 13:02 06/05/25 14:00 Temperature 36.6 C 36.6 C 36.6 C Pulse Rate 65 61 64 Respiratory Rate 18 20 18 Blood Pressure 199/98 H 179/95 H 189/90 H Pulse Oximetry 97 97 99 Oxygen Delivery 06/05/25 14:31 06/05/25 15:22 06/05/25 15:30 Temperature 36.6 C 36.6 C Pulse Rate 54 L 67 65 Respiratory Rate 19 21 H 19 Blood Pressure 187/88 H 184/86 H Pulse Oximetry 97 96 96 Oxygen Delivery 06/05/25 15:50 06/05/25 16:24 06/05/25 18:00 Temperature 36.7 C Pulse Rate 55 L 78 Respiratory Rate 22 H Blood Pressure 207/99 H 185/81 H Pulse Oximetry 97 Oxygen Delivery 06/05/25 20:00 06/05/25 20:00 06/05/25 20:00 Temperature 36.7 C Pulse Rate 66 78 62 Respiratory Rate 18 Blood Pressure 134/69 Pulse Oximetry 93 97 Oxygen Delivery Room Air 06/05/25 20:13 06/05/25 22:00 06/05/25 23:35 Temperature 37.1 C Pulse Rate 60 48 L 58 L Respiratory Rate 16 Blood Pressure 126/54 L Pulse Oximetry 91 Oxygen Delivery 06/06/25 00:00 06/06/25 00:00 06/06/25 02:00 Temperature Pulse Rate 49 L 50 L 56 L Respiratory Rate Blood Pressure Pulse Oximetry 97 Oxygen Delivery Room Air 06/06/25 03:16 06/06/25 04:00 06/06/25 04:00 Temperature 36.8 C Pulse Rate 52 L 63 48 L Respiratory Rate 18 Blood Pressure 111/58 L Pulse Oximetry 97 94 Oxygen Delivery Room Air 06/06/25 06:00 06/06/25 07:40 06/06/25 08:00 Temperature 36.6 C Pulse Rate 56 L 58 L 52 L Respiratory Rate 20 Blood Pressure 151/67 H Pulse Oximetry 93 Oxygen Delivery Room Air Intake/Output Intake/Output: Intake & Output 06/03/25 06/04/25 06/05/25 06/06/25 23:59 23:59 23:59 23:59 Intake Total 405.7 199.8 Output Total 400 Balance 405.7 -200.2 Meds/Results Medications: Active Medications Generic Name Dose Route Start Last Admin Trade Name Freq PRN Reason Stop Dose Admin Aspirin 81 mg 06/06/25 09:00 06/06/25 08:34 Aspirin 81 Mg Enteric Tablet PO 81 mg QAM HEMAL Administration Atorvastatin Calcium 40 mg 06/06/25 09:00 06/06/25 08:34 Atorvastatin 40 Mg Tablet PO 40 mg DAILY HEMAL Administration Heparin Sodium (Porcine) 4,000 units 06/05/25 12:38 Heparin Sodium 5,000 Units/Ml Vial IV PUSH PRN PRN aPTT less than 55 seconds Heparin Sodium (Porcine) 3,000 units 06/05/25 12:39 06/05/25 20:12 Heparin Sodium 5,000 Units/Ml Vial IV PUSH 3,000 units PRN PRN Administration aPTT 55 - 70 seconds Heparin Sodium/Dextrose 25,000 units in 250 mls @ 9 mls/hr 06/05/25 12:40 06/06/25 04:33 Heparin Sodium/D5w 100 Units/Ml IV CONT 900 units/hr .Q24H HEMAL 9 mls/hr Titration Protocol 900 UNITS/HR Metoprolol Tartrate 25 mg 06/05/25 21:00 06/06/25 08:08 Metoprolol Tartrate 25 Mg Tablet PO Not Given Q12HR HEMAL Nitroglycerin 0.4 mg 06/05/25 11:03 Nitroglycerin Sl 0.4 Mg Tablet SUBLINGUAL Q5MIN PRN Chest Pain Ondansetron HCl 4 mg 06/05/25 11:03 Ondansetron Inj 4 Mg/2 Ml Vial IV PUSH Q4H PRN Nausea Perflutren Lipid Microsphere 0 ml 06/05/25 13:09 Perflutren Lipid Microspheres 1.5 Ml Vial Diluted To 10 Ml Total Volume IV PUSH 06/08/25 13:09 ONCE PRN adequate visualization Protocol Radiology Results: ITS Impressions Chest X-Ray 06/05/25 10:27 IMPRESSION: No focal infiltrate or effusion. Labs 06/06/25 02:06 06/06/25 02:06 Labs: Laboratory Results - last 24 hr 06/05/25 06/05/25 06/05/25 09:26 12:12 17:12 WBC RBC Hgb Hct MCV MCH MCHC RDW Plt Count MPV Immature Gran % (Auto) Neut % (Auto) Lymph % (Auto) [place] % (Auto) Eos % (Auto) Baso % (Auto) Lymph # (Auto) [place] # (Auto) Eos # (Auto) Baso # (Auto) Abs Immat Gran (auto) Absolute Neuts (auto) Absolute Nucleated RBC Nucleated RBC % APTT Sodium 139 Potassium 4.3 Chloride 104 Carbon Dioxide 28 Anion Gap 7 BUN 13 Creatinine 0.89 Estim Creat Clear Calc 62 Estimated GFR > 60 Glucose 134 H Hemoglobin A1c Calcium 9.5 Total Bilirubin 0.6 AST 25 ALT 20 Alkaline Phosphatase 50 Troponin I 0.056 H* 0.052 H* 0.052 H* Total Protein 7.6 Albumin 4.3 Triglycerides Cholesterol LDL Cholesterol Direct HDL Direct Lipase 205 06/05/25 06/06/25 06/06/25 19:33 02:06 03:16 WBC 8.7 RBC 4.75 Hgb 14.5 Hct 42.9 MCV 90.3 MCH 30.5 MCHC 33.8 RDW 12.7 Plt Count 267 MPV 8.7 Immature Gran % (Auto) 0.3 Neut % (Auto) 62.0 Lymph % (Auto) 26.2 [place] % (Auto) 9.2 H Eos % (Auto) 1.8 Baso % (Auto) 0.5 Lymph # (Auto) 2.27 [place] # (Auto) 0.8 H Eos # (Auto) 0.2 Baso # (Auto) 0.0 Abs Immat Gran (auto) 0.03 Absolute Neuts (auto) 5.4 Absolute Nucleated RBC 0.000 Nucleated RBC % 0.0 APTT 56.5 H 187.2 H* Sodium 134 L Potassium 4.1 Chloride 102 Carbon Dioxide 28 Anion Gap 4 BUN 16 Creatinine 0.87 Estim Creat Clear Calc 64 Estimated GFR > 60 Glucose 104 Hemoglobin A1c 6.3 H Calcium 9.0 Total Bilirubin 0.4 AST 24 ALT 17 Alkaline Phosphatase 49 Troponin I Total Protein 6.5 Albumin 3.7 Triglycerides 88 Cholesterol 187 LDL Cholesterol Direct 99 HDL Direct 46 Lipase ASA Classification/Sedation ASA Classification/Sedation ASA Class: III Emergent: No Risks: Risks, benefits and alternatives explained and patient/family accepted plan for sedation. Patient re-evaluated immediately prior to sedation.
--- NOTE | 2025-06-06 09:53 | WPDHPUPDATE1 ---
History and Physical Update Update Date/Time: 06/06/25 09:53 History and Physical has been reviewed, including an updated exam of the patient. There are NO changes in the patient's condition. Risks, benefits, and alternatives have been discussed and questions answered. Patient agrees to proceed with procedure.
--- NOTE | 2025-06-06 09:54 | WPDCARDPROC ---
Cardiac Cath Procedure Note Date of procedure:: 06/06/25 Performing physician:: Elaine Arguelles MD Indication:: CATHETERIZATION LABORATORY REPORT Procedure Date: 06/06/2025 Anesthesia: Versed and Fentanyl were ordered and given in my presence at 11:49 a.m., procedure ended at 12:38 p.m.. Supervision of nurse monitored moderate sedation with Versed and Fentanyl was provided for 49 minutes. Fentanyl 100 mcg Versed 1 mg Pre-op Diagnosis: NSTEMI Hypertensive urgency Post-op Diagnosis: NSTEMI status post successful IVUS guided PCI to 90% distal RCA stenosis with 3.5 mm X 30 mm Medtronic [place] EVELIA post dilated with 4.5 mm X 15 mm NC balloon Hypertension Procedure(s): Left heart catheterization with coronary angiography PCI to distal RCA Access Site: Right radial artery Brief History and Clinical Indications: All risks, benefits and alternatives to left heart catheterization with or without percutaneous coronary intervention was discussed at length with the patient. Risk of complications including but not limited to bleeding, infection, arrhythmia, stroke, worsening kidney function, blood loss, groin hematoma, limb loss, emergency coronary artery bypass grafting, and even were discussed with the patient and all questions were answered. The patient understood and wished to proceed. Time out called, patient name, date of , medical record number, allergies, procedure performed, identify Service Loss Control Consultant, patient and staff member concurred with accurate data, procedure carried on. Findings: LEFT HEART CATHETERIZATION FINDINGS: 1. Left main: The left main coronary artery is widely patent without any significant obstructive disease. 2. Left anterior descending: The LAD and the diagonal branches have mild luminal irregularities without any significant obstructive angiographic disease. 3. Left circumflex: The left circumflex artery and the main marginal branches have mild luminal irregularities without any significant obstructive angiographic disease. 4. Right coronary artery: The RCA is a dominant vessel. There is 50% stenosis in the proximal RCA. There are 2 serial 50% stenosis in the mid RCA. There is a 90% stenosis in the distal RCA just before the bifurcation of the RPDA and RPL. This is the culprit for patient's presentation. The ostial RPDA has 70% stenosis. The RPL has luminal irregularities without any significant obstructive angiographic disease. 5. Left ventricle: A. End-diastolic pressure 8 mmHg. B. LV gram deferred. C. No significant gradient across aortic valve on catheter pullback. 6. Opening AO pressure 122/55/80 and closing AO pressure 123/63/87 mm Hg. Description of Procedure: Informed consent signed and placed in the chart. Patient transferred to veterinary laboratory technician room. Prepped and draped in usual sterile fashion. 2% lidocaine injected subcutaneously in right wrist area. 22-gauge venipuncture catheter used to access the right radial artery with the Seldinger technique. 6-FR slender sheath placed in right radial artery. Nitroglycerin 200mcg, Verapamil 2.5mg, and Heparin 5000U was given intraarterial through the sheath. J wire advanced under fluoroscopy Five [place] 3.5 diagnostic catheter engaged Left Main Coronary Artery. 5 [place] FR4 diagnostic catheter engaged Right Coronary Artery Multiple orthogonal angiogram obtained and reviewed 5 [place] FR4 diagnostic catheter crossed aortic valve to obtain LVEDP, LV angiogram deferred. Hemostasis was achieved by application of TR band. Procedure Description for PCI: Heparin was used for anticoagulation (ACT maintained above 250) Patient loaded with heparin at 70 units/kg. 6 F FR4 guide catheter was used to intubate the RCA. 0.014 runthrough coronary wire was passed in to the distal RPDA. A 2nd 0.014 runthrough coronary wire was passed in to the distal RPL a. The lesion was pre-dilated with a 3.0 mm x 20 mm balloon inflated to high MATTHIEU. An [employer] [place] IVUS catheter was advanced into the RPDA and pullback performed to assess lesion characteristics and size of the vessel. The ostium of the RPDA showed 80% stenosis and proximal RPDA had 70% stenosis. IVUS catheter was then advanced into the RPLA and pullback performed to assess lesion characteristics and size of the vessel. The ostium of the RPLA was free of any significant obstructive CAD. A 3.5 mm x 30 mm [employer]onic [place] EVELIA was successfully deployed into distal RCA extending into the RPDA. The stent was post-dilated with a 4.5 mm x 15 mm NC balloon inflated to high MATTHIEU. Intracoronary NTG was administered. Follow-up angiograms showed an excellent result. Coronary wire and guide-catheter were removed. Pre-procedure - REBECCA 3 flow. Post-procedure - REBECCA 3 flow. No angiographic complications identified. Assessment: NSTEMI status post successful IVUS guided PCI to 90% distal RCA stenosis with 3.5 mm X 30 mm [employer]tronic brad [place] EVELIA post dilated with 4.5 mm X 15 mm NC balloon Hypertension Post Operative Condition: Stable No significant blood loss Disposition: Floor Plan: The patient will be monitored in the recovery area. Brilinta 180 mg p.o. once followed by 90 mg p.o. b.i.d. for 1 year. Aspirin 81 mg daily indefinitely. Atorvastatin 80 mg daily. Continue metoprolol. IV fluids 0.9% normal saline at 100 mL/hour for 1 L. Removal of TR band per protocol. Check renal function in a.m.. Cardiac rehab in 1 month. Continue aggressive medical therapy and risk factor modification. Further recommendations and management per primary cardiology team.
--- NOTE | 2025-06-06 10:41 | PM.IMPN ---
Progress Note: A&P Assessment and Plan (1) NSTEMI (non-ST elevated myocardial infarction): Code(s): I21.4 - Non-ST elevation (NSTEMI) myocardial infarction Status: Acute Assessment and Plan: Initial EKG: sinus rhythm, anteroseptal [place] of indeterminate age with repeat EKG showing similar findings CXR: No focal infiltrate or effusion Troponin elevated but flat. ASA 324 given, continue as 81 daily Nitro SL PRN Patient having chest pain with exertion. Heparin gtt started. Cardiology consulted for planned LHC today. LHC showing a 90% stenosis in the distal RCA just before the bifurcation of the RPDA and RPL felt to be the culprit lesion. He underwent successful IVUS guided PCI to 90% distal RCA stenosis with 3.5 mm X 30 mm Medtronic brad [place] EVELIA post dilated with 4.5 mm X 15 mm NC balloon. Currently on medical management with ASA, Brilinta, Metoprolol and Lipitor (2) Hypertensive urgency: Code(s): I16.0 - Hypertensive urgency Status: Acute Assessment and Plan: Patient has a hx of HTN on treatment but never followed up. Initial BP upon evaluation was 215/97 BP better controlled just with metoprolol. Continue to monitor and advance medications as needed. Plan DVT Prophylaxis: Heparin gtt Code Status: Full code Subjective Date/time seen: 06/06/25 10:41 Interval history: 70yo male with no significant past medical history presents here with chest pain. Assuming care. Chart reviewed. About 5 years ago, patient was diagnosed with hypertension and was on medications. Patient never followed up with a physician. He has not seen a physician for the past 4-5 years. He does not check his blood pressure at home. He denies any chest pain. No nausea or vomiting. No palpitations. He smokes 10 cigarettes per day. He smoked up to 2 packs a day and has smoked for the past 50 years. Exam Narrative: AF 97.8 151/67 52 20 93% ra Gen - NARD Chest -distant breath sounds with prolonged expiratory phase and faint expiratory wheeze. CV - RRR S1/S2. Telemetry showing PVCs. Abd - Soft, NT/ND, Positive BS Ext - No pedal edema. 2+ DP pulses bilaterally Neuro - Alert and oriented. Nonfocal exam. Psych - Nml mood and affect Skin - Warm and dry Objective Data Vital Signs Vital Signs: Vital Signs - 24 hr 06/05/25 10:50 06/05/25 11:31 06/05/25 12:15 Temperature 97.8 F 97.8 F 97.9 F Pulse Rate 71 64 65 Respiratory Rate 16 18 18 Blood Pressure 194/87 H 198/96 H 199/98 H Pulse Oximetry 94 97 97 Oxygen Delivery 06/05/25 13:02 06/05/25 14:00 06/05/25 14:31 Temperature 97.9 F 97.8 F 97.9 F Pulse Rate 61 64 54 L Respiratory Rate 20 18 19 Blood Pressure 179/95 H 189/90 H 187/88 H Pulse Oximetry 97 99 97 Oxygen Delivery 06/05/25 15:22 06/05/25 15:30 06/05/25 15:50 Temperature 97.8 F 98.1 F Pulse Rate 67 65 55 L Respiratory Rate 21 H 19 22 H Blood Pressure 184/86 H 207/99 H Pulse Oximetry 96 96 97 Oxygen Delivery 06/05/25 16:24 06/05/25 18:00 06/05/25 20:00 Temperature 98.1 F Pulse Rate 78 66 Respiratory Rate 18 Blood Pressure 185/81 H 134/69 Pulse Oximetry 93 Oxygen Delivery 06/05/25 20:00 06/05/25 20:00 06/05/25 20:13 Temperature Pulse Rate 78 62 60 Respiratory Rate Blood Pressure Pulse Oximetry 97 Oxygen Delivery Room Air 06/05/25 22:00 06/05/25 23:35 06/06/25 00:00 Temperature 98.7 F Pulse Rate 48 L 58 L 49 L Respiratory Rate 16 Blood Pressure 126/54 L Pulse Oximetry 91 97 Oxygen Delivery Room Air 06/06/25 00:00 06/06/25 02:00 06/06/25 03:16 Temperature Pulse Rate 50 L 56 L 52 L Respiratory Rate Blood Pressure Pulse Oximetry 97 Oxygen Delivery Room Air 06/06/25 04:00 06/06/25 04:00 06/06/25 06:00 Temperature 98.3 F Pulse Rate 63 48 L 56 L Respiratory Rate 18 Blood Pressure 111/58 L Pulse Oximetry 94 Oxygen Delivery 06/06/25 07:40 06/06/25 08:00 Temperature 97.8 F Pulse Rate 58 L 52 L Respiratory Rate 20 Blood Pressure 151/67 H Pulse Oximetry 93 Oxygen Delivery Room Air Intake/Output Intake/Output: Intake & Output 06/03/25 06/04/25 06/05/25 06/06/25 23:59 23:59 23:59 23:59 Intake Total 405.7 199.8 Output Total 400 Balance 405.7 -200.2 Meds/Results Medications: Active Medications Generic Name Dose Route Start Last Admin Trade Name Freq PRN Reason Stop Dose Admin Aspirin 81 mg 06/06/25 09:00 06/06/25 08:34 Aspirin 81 Mg Enteric Tablet PO 81 mg QAM HEMAL Administration Atorvastatin Calcium 40 mg 06/06/25 09:00 06/06/25 08:34 Atorvastatin 40 Mg Tablet PO 40 mg DAILY HEMAL Administration Heparin Sodium (Porcine) 4,000 units 06/05/25 12:38 Heparin Sodium 5,000 Units/Ml Vial IV PUSH PRN PRN aPTT less than 55 seconds Heparin Sodium (Porcine) 3,000 units 06/05/25 12:39 06/05/25 20:12 Heparin Sodium 5,000 Units/Ml Vial IV PUSH 3,000 units PRN PRN Administration aPTT 55 - 70 seconds Heparin Sodium/Dextrose 25,000 units in 250 mls @ 9 mls/hr 06/05/25 12:40 06/06/25 04:33 Heparin Sodium/D5w 100 Units/Ml IV CONT 900 units/hr .Q24H HEMAL 9 mls/hr Titration Protocol 900 UNITS/HR Metoprolol Tartrate 25 mg 06/05/25 21:00 06/06/25 08:08 Metoprolol Tartrate 25 Mg Tablet PO Not Given Q12HR HEMAL Nitroglycerin 0.4 mg 06/05/25 11:03 Nitroglycerin Sl 0.4 Mg Tablet SUBLINGUAL Q5MIN PRN Chest Pain Ondansetron HCl 4 mg 06/05/25 11:03 Ondansetron Inj 4 Mg/2 Ml Vial IV PUSH Q4H PRN Nausea Perflutren Lipid Microsphere 0 ml 06/05/25 13:09 Perflutren Lipid Microspheres 1.5 Ml Vial Diluted To 10 Ml Total Volume IV PUSH 06/08/25 13:09 ONCE PRN adequate visualization Protocol Radiology Results: ITS Impressions Chest X-Ray 06/05/25 10:27 IMPRESSION: No focal infiltrate or effusion. Labs Labs: Laboratory Results - last 24 hr 06/05/25 06/05/25 06/05/25 12:12 17:12 19:33 WBC RBC Hgb Hct MCV MCH MCHC RDW Plt Count MPV Immature Gran % (Auto) Neut % (Auto) Lymph % (Auto) [place] % (Auto) Eos % (Auto) Baso % (Auto) Lymph # (Auto) [place] # (Auto) Eos # (Auto) Baso # (Auto) Abs Immat Gran (auto) Absolute Neuts (auto) Absolute Nucleated RBC Nucleated RBC % APTT 56.5 H Sodium Potassium Chloride Carbon Dioxide Anion Gap BUN Creatinine Estim Creat Clear Calc Estimated GFR Glucose Hemoglobin A1c Calcium Total Bilirubin AST ALT Alkaline Phosphatase Troponin I 0.052 H* 0.052 H* Total Protein Albumin Triglycerides Cholesterol LDL Cholesterol Direct HDL Direct 06/06/25 06/06/25 02:06 03:16 WBC 8.7 RBC 4.75 Hgb 14.5 Hct 42.9 MCV 90.3 MCH 30.5 MCHC 33.8 RDW 12.7 Plt Count 267 MPV 8.7 Immature Gran % (Auto) 0.3 Neut % (Auto) 62.0 Lymph % (Auto) 26.2 [place] % (Auto) 9.2 H Eos % (Auto) 1.8 Baso % (Auto) 0.5 Lymph # (Auto) 2.27 [place] # (Auto) 0.8 H Eos # (Auto) 0.2 Baso # (Auto) 0.0 Abs Immat Gran (auto) 0.03 Absolute Neuts (auto) 5.4 Absolute Nucleated RBC 0.000 Nucleated RBC % 0.0 APTT 187.2 H* Sodium 134 L Potassium 4.1 Chloride 102 Carbon Dioxide 28 Anion Gap 4 BUN 16 Creatinine 0.87 Estim Creat Clear Calc 64 Estimated GFR > 60 Glucose 104 Hemoglobin A1c 6.3 H Calcium 9.0 Total Bilirubin 0.4 AST 24 ALT 17 Alkaline Phosphatase 49 Troponin I Total Protein 6.5 Albumin 3.7 Triglycerides 88 Cholesterol 187 LDL Cholesterol Direct 99 HDL Direct 46
[2025-06-06 10:55] LABS: Partial Thromboplastin Time 66.5 Seconds (22.3-36.8)
[2025-06-06] MEDS: HEPARIN SOD/D5W 100 UNITS/ML 25,000 UNITS/250 ML BAG 9 UNITS IV CONT (11:14)
[2025-06-06] MEDS: METOPROLOL TARTRATE 25 MG TABLET PO (20:38)
[2025-06-07] VITALS (9 sets, daily range): BP systolic 136–140; BP diastolic 62–72; PULSE 55–71; RESP 18–20; TEMP 36.8; O2SAT 92–94
--- NOTE | 2025-06-07 06:53 | P.PNCA_ITS ---
Progress Note: A&P Assessment and Plan (1) NSTEMI (non-ST elevated myocardial infarction): Code(s): I21.4 - Non-ST elevation (NSTEMI) myocardial infarction Status: Acute (2) Hypertensive urgency: Code(s): I16.0 - Hypertensive urgency Status: Acute Plan NSTEMI status post successful IVUS guided PCI to 90% stenosis in the distal RCA with 3.5 mm X 30 mm Medtronic brad [place] EVELIA post dilated with 4.5 mm X 15 mm NC balloon; TTE shows normal LVEF of 60%, mild , mild MR Hypertensive urgency-SBP at presentation was in the 200s; SBP in the range of 150s today Plan: DAPT for 1 year with aspirin 81 mg daily and ticagrelor 90 mg b.i.d.. After that aspirin 81 mg daily indefinitely Continue aspirin 81 mg daily Continue atorvastatin 80 mg daily Continue metoprolol 25 mg p.o. b.i.d. Add amlodipine 5 mg daily for better blood pressure control Check and replace electrolytes to keep K>4 and Mg>2 Good risk factor control including blood pressure, blood sugars, lipids Cardiac rehab at 1 month Okay to discharge home from cardiac standpoint. Follow-up with cardiology in 1 month Thank you for allowing us to participate in the care of this patient. Cardiology will sign off. Please call us with any questions. Subjective Date/time seen: 06/07/25 06:53 Interval history: Reason for encounter: NSTEMI status successful IVUS guided post PCI to distal RCA Interval history: Patient denies any chest pain, shortness of breath, palpitations, dizziness. He is on DAPT. Review of Systems Cardiovascular: Comments: As per HPI Respiratory: Comments: As per HPI Exam Narrative: General: Alert oriented x3, no acute distress Neck: Supple, no JVD Chest: Bilaterally clear to auscultation, no rales or rhonchi Cardiac: S1, S2 +, regular rate, regular rhythm, no murmurs or rubs Extremities: No pedal edema, no skin rash Neurologic: Alert and oriented x3, no focal neurological deficits Objective Data Vital Signs Vital Signs: Vital Signs - 24 hr 06/06/25 07:40 06/06/25 08:00 06/06/25 08:00 Temperature 36.6 C Pulse Rate 58 L 52 L 53 L Pulse Rate [Bilateral Posterior Tibial Palpation] Respiratory Rate 20 Blood Pressure 151/67 H Pulse Oximetry 93 Oxygen Delivery Room Air 06/06/25 10:48 06/06/25 13:00 06/06/25 13:00 Temperature Pulse Rate 66 63 Pulse Rate [Bilateral Posterior Tibial Palpation] 63 Respiratory Rate 18 Blood Pressure 150/109 H Pulse Oximetry 94 Oxygen Delivery Room Air 06/06/25 13:15 06/06/25 13:15 06/06/25 13:30 Temperature Pulse Rate 53 L Pulse Rate [Bilateral Posterior Tibial Palpation] 53 L 60 Respiratory Rate 17 Blood Pressure 167/63 H Pulse Oximetry 93 Oxygen Delivery Room Air 06/06/25 13:30 06/06/25 13:45 06/06/25 13:45 Temperature Pulse Rate 60 71 Pulse Rate [Bilateral Posterior Tibial Palpation] 71 Respiratory Rate 19 23 H Blood Pressure 169/77 H 169/77 H Pulse Oximetry 97 94 Oxygen Delivery Room Air Room Air 06/06/25 14:00 06/06/25 14:00 06/06/25 14:15 Temperature Pulse Rate 72 Pulse Rate [Bilateral Posterior Tibial Palpation] 72 60 Respiratory Rate 17 Blood Pressure 152/75 H Pulse Oximetry 96 Oxygen Delivery Room Air 06/06/25 14:15 06/06/25 14:30 06/06/25 14:30 Temperature Pulse Rate 60 67 Pulse Rate [Bilateral Posterior Tibial Palpation] 67 Respiratory Rate 20 19 Blood Pressure 152/75 H 159/70 H Pulse Oximetry 95 95 Oxygen Delivery Room Air Room Air 06/06/25 14:45 06/06/25 14:45 06/06/25 15:00 Temperature Pulse Rate 63 Pulse Rate [Bilateral Posterior Tibial Palpation] 63 68 Respiratory Rate 20 Blood Pressure 144/87 H Pulse Oximetry 94 Oxygen Delivery Room Air 06/06/25 15:00 06/06/25 15:15 06/06/25 15:15 Temperature Pulse Rate 68 65 Pulse Rate [Bilateral Posterior Tibial Palpation] 65 Respiratory Rate 19 20 Blood Pressure 146/92 H 154/76 H Pulse Oximetry 94 95 Oxygen Delivery Room Air Room Air 06/06/25 15:30 06/06/25 15:30 06/06/25 15:45 Temperature Pulse Rate 63 Pulse Rate [Bilateral Posterior Tibial Palpation] 63 64 Respiratory Rate 18 Blood Pressure 154/76 H Pulse Oximetry 95 Oxygen Delivery Room Air 06/06/25 15:45 06/06/25 16:00 06/06/25 16:00 Temperature Pulse Rate 64 61 Pulse Rate [Bilateral Posterior Tibial Palpation] 61 Respiratory Rate 17 18 Blood Pressure 155/80 H 157/92 H Pulse Oximetry 95 94 Oxygen Delivery Room Air Room Air 06/06/25 16:15 06/06/25 16:15 06/06/25 16:30 Temperature Pulse Rate 66 Pulse Rate [Bilateral Posterior Tibial Palpation] 66 62 Respiratory Rate 20 Blood Pressure 157/92 H Pulse Oximetry 94 Oxygen Delivery Room Air 06/06/25 16:30 06/06/25 16:45 06/06/25 16:45 Temperature Pulse Rate 62 65 Pulse Rate [Bilateral Posterior Tibial Palpation] 65 Respiratory Rate 16 17 Blood Pressure 163/68 H 163/68 H Pulse Oximetry 93 94 Oxygen Delivery Room Air Room Air 06/06/25 17:00 06/06/25 17:00 06/06/25 17:22 Temperature Pulse Rate 62 66 Pulse Rate [Bilateral Posterior Tibial Palpation] 62 Respiratory Rate 18 22 H Blood Pressure 146/68 H 209/78 H Pulse Oximetry 94 95 Oxygen Delivery Room Air 06/06/25 18:00 06/06/25 18:00 06/06/25 18:23 Temperature 36.4 C L Pulse Rate 80 95 Pulse Rate [Bilateral Posterior Tibial Palpation] 77 Respiratory Rate 17 Blood Pressure 153/97 H Pulse Oximetry 95 Oxygen Delivery 06/06/25 18:30 06/06/25 20:00 06/06/25 20:00 Temperature Pulse Rate 76 61 60 Pulse Rate [Bilateral Posterior Tibial Palpation] Respiratory Rate 17 Blood Pressure 147/87 H Pulse Oximetry 96 98 Oxygen Delivery Room Air 06/06/25 20:13 06/06/25 20:38 06/06/25 22:00 Temperature 36.9 C Pulse Rate 63 72 58 L Pulse Rate [Bilateral Posterior Tibial Palpation] Respiratory Rate 16 Blood Pressure 156/69 H Pulse Oximetry 91 Oxygen Delivery 06/06/25 23:26 06/06/25 23:33 06/07/25 00:00 Temperature 36.8 C Pulse Rate 59 L 54 L 63 Pulse Rate [Bilateral Posterior Tibial Palpation] Respiratory Rate 18 Blood Pressure 149/73 H Pulse Oximetry 94 98 Oxygen Delivery Room Air 06/07/25 02:00 06/07/25 03:31 06/07/25 03:32 Temperature 36.8 C Pulse Rate 61 65 58 L Pulse Rate [Bilateral Posterior Tibial Palpation] Respiratory Rate 18 Blood Pressure 140/72 Pulse Oximetry 94 94 Oxygen Delivery Room Air 06/07/25 04:00 06/07/25 06:00 Temperature Pulse Rate 55 L 57 L Pulse Rate [Bilateral Posterior Tibial Palpation] Respiratory Rate Blood Pressure Pulse Oximetry Oxygen Delivery Intake/Output Intake/Output: Intake & Output 06/04/25 06/05/25 06/06/25 06/07/25 23:59 23:59 23:59 23:59 Intake Total 405.7 379.9 450 Output Total 650 500 Balance 405.7 -270.1 -50 Meds/Results Medications: Active Medications Generic Name Dose Route Start Last Admin Trade Name Freq PRN Reason Stop Dose Admin Aspirin 81 mg 06/06/25 09:00 06/06/25 08:34 Aspirin 81 Mg Enteric Tablet PO 81 mg QAM HEMAL Administration Atorvastatin Calcium 40 mg 06/06/25 09:00 06/06/25 08:34 Atorvastatin 40 Mg Tablet PO 40 mg DAILY HEMAL Administration Metoprolol Tartrate 25 mg 06/05/25 21:00 06/06/25 20:38 Metoprolol Tartrate 25 Mg Tablet PO 25 mg Q12HR HEMAL Administration Nitroglycerin 0.4 mg 06/05/25 11:03 Nitroglycerin Sl 0.4 Mg Tablet SUBLINGUAL Q5MIN PRN Chest Pain Ondansetron HCl 4 mg 06/05/25 11:03 Ondansetron Inj 4 Mg/2 Ml Vial IV PUSH Q4H PRN Nausea Perflutren Lipid Microsphere 0 ml 06/05/25 13:09 Perflutren Lipid Microspheres 1.5 Ml Vial Diluted To 10 Ml Total Volume IV PUSH 06/08/25 13:09 ONCE PRN adequate visualization Protocol Ticagrelor 90 mg 06/07/25 21:00 Ticagrelor 90 Mg Tablet PO Q12HR [facility] Radiology Results: ITS Impressions Chest X-Ray 06/05/25 10:27 IMPRESSION: No focal infiltrate or effusion. Labs Labs: Laboratory Results - last 24 hr 06/06/25 06/06/25 10:20 12:19 APTT 66.5 H Activ Coag Time Kaolin 285 H
[2025-06-07] MEDS: METOPROLOL TARTRATE 25 MG TABLET PO (08:23)
[2025-06-07] MEDS: ATORVASTATIN 40 MG TABLET PO (08:23)
[2025-06-07] MEDS: ASPIRIN 81 MG ENTERIC TABLET PO (08:23)
--- NOTE | 2025-06-07 10:14 | PC.NURSE ---
0820: After speaking with pt this AM, he was unclear about the Meds-2-beds program, and what it entailed. Banking Management Consulting Manager was at pt's bedside around 0700 this morning. That doctor said I could leave today. They said it would be before lunch. This RN explained the Meds-2-Beds program to the pt as well as his other options of obtaining the medications. Whatever is quicker is what I want. I trust your judgement, they said I could be out by lunch. This RN reached out to medical information specialist and Care Coordination to see which route would be the quickest to obtain the medications. Staff decided since the medications weren't sent to the pharmacy last night, that it would be quicker to use the pt's personal pharmacy of [facility] to obtain the Brilinta and the other new cardiac medications. New prescriptions that were ordered by the Banking Management Consulting Manager were sent to [facility] in [place], [place]. 1005: Pt's son arrived with all new cardiac medications (ASA, Metoprolol, Atorvastatin, Brilinta). Medications seen by this RN at pt's bedside. Stent card given to pt, and placed in pt's wallet by his son. Pt signed the Meds-2-Beds Opt-Out form.
--- NOTE | 2025-06-07 10:59 | P.DS_ITS ---
DS: Admitting Diagnosis Discharge Date 06/07/25 Admitting Diagnosis Chest pain DS: Discharge Diagnosis Discharge Diagnosis (1) NSTEMI (non-ST elevated myocardial infarction): Code(s): I21.4 - Non-ST elevation (NSTEMI) myocardial infarction Status: Acute (2) Hypertensive urgency: Code(s): I16.0 - Hypertensive urgency Status: Acute (3) Tobacco abuse: Code(s): Z72.0 - Tobacco use Status: Acute DS: Summary Hospital Course Reason for hospitalization: 70yo male with HTN who presents here with chest pain. Please see H&P for details. Hospital Course: Patient presents with chest pain. Initial BP upon evaluation was 215/97. Patient has a hx of HTN and was on treatment in the past but never followed up. The initial EKG showing sinus rhythm, anteroseptal PR of indeterminate age with repeat EKG showing similar findings. CXR showing no focal infiltrate or effusions. Troponin was elevated but flat at 0.056. He was started on aspirin and metoprolol. BP better controlled just with metoprolol. Heparin gtt started. Cardiology consulted. LHC showing a 90% stenosis in the distal RCA just before the bifurcation of the RPDA and RPL felt to be the culprit lesion. He underwent successful IVUS guided PCI to 90% distal RCA stenosis with 3.5 mm X 30 mm Medtronic brad [place] EVELIA post dilated with 4.5 mm X 15 mm NC balloon on 06/06/25. Medical management with ASA, Brilinta, Metoprolol and Lipitor. He tolerated the procedure well. He was educated about the benefits of smoking cessation. Discharge instructions were discussed with patient and family in detail. All questions answered. He overall did well and was able to be discharged home on 06/07/25. Status at Discharge Cognitive/behavioral status at discharge: stable Time Spent with Patient Time attestation: Total time spent providing and/or coordinating discharge services: 34 minutes Time spent: Greater than 30 minutes Exam Narrative: AF 98.2 136/62 64 20 92% ra Gen - NARD Chest - scattered rhonchi CV - RRR S1/S2. Telemetry showing PVCs. Abd - Soft, NT/ND, Positive BS Ext - No pedal edema Psych - Nml mood and affect Skin - Warm and dry DS: Data Data Completed and Pending Labs on day of discharge: Labs from last 24 hours 06/06/25 12:19 Activ Coag Time Kaolin 285 H Discharge Plan Discharge Attending physician on discharge: William Alvarado Consulting providers: [place] Leslie; Elaine Arguelles Discharging Clinician: William Alvarado Anticipated Discharge Date/Time: 06/07/25 11:23 Patient Disposition: Home Activity: other - see discharge instructions Diet: heart healthy Discharge Instructions: [facility] [address] [place], [place] [id number] DISCHARGE INSTRUCTIONS - POST RADIAL CATH Activity 1. No driving for 24 hours. 2. No lifting more than 5 lb with affected arm for 1 week. 3. May shower ( tomorrow) but no excessive soaking of affected hand/wrist (such as washing dishes), swimming pool or hot tub for 5 days. Wound Care 1. May remove arm board in the morning. 2. May remove gauze dressing in the morning and put Band-Aid over affected radial site. Keep site covered for 3 days. 3. Observe for redness, drainage, swelling or bleeding. Medications DO NOT STOP YOUR MEDICATIONS ONLY YOUR DRAFTER ELECTROMECHANICAL CAN STOP THE FOLLOWING MEDICATIONS - PLEASE CALL THE OFFICE WITH QUESTIONS. *Aspirin *Ticagrelor (Brilinta) *Atorvastatin *Lisinopril or ARB *Metoprolol tartrate or succinate *Clopidogrel (Plavix) *Prasugrel (Effient) Important Reminders 1. Keep your stent card in your wallet at all times 2. Follow a heart healthy diet paying extra attention to cholesterol and fats. 3. Stay hydrated. 4. If you have chest pain unrelieved by rest or nitroglycerin (if prescribed) call 911 immediately. 5. If you miss one dose of Brilinta (if prescribed) take a tablet at the next time due. If you miss 2 doses take a tablet when you remember and resume at the next time due. *For any other questions please call the office at [phone]. Office hours are 8AM 4:30PM Wednesday through Wednesday. Check blood pressure 1 to 2 times a day. Record and bring into your doctor for review. Call your doctor if your blood pressure is greater than 180/110. Avoid NSAIDs (ibuprofen, naproxen, Aleve). Tylenol is safe to take. Follow-up with your primary care provider in 1-2 weeks. Please call for appointment. Follow-up with Cardiology in 2-3 weeks. Please call for an appointment. Thank you for using [facility] for your health care needs. Patient Instructions: Antibiotic Form, Ticagrelor (By mouth), Heart Healthy Diet (DC), Heart Catheterization (DC), Coronary Intravascular Stent Placement (DC), After Radial Heart Catheterization (GEN) Patient Language: Danish Stand Alone Forms: General Discharge Information Follow-up/Referrals: PHYSICIAN,HOG HANDLER [Primary Care Provider] - Call for Appointment Elaine Arguelles MD [Physician] - Call for Appointment Discharge Medications: New ticagrelor [Brilinta] 90 mg Tablet 90 mg PO Q12HR 30 Days Qty: 60 0RF atorvastatin 40 mg Tablet 40 mg PO DAILY 30 Days Qty: 30 12RF aspirin 81 mg Tablet,Delayed Release (Dr/Ec) 81 mg PO QAM 60 Days Qty: 60 6RF metoprolol tartrate 25 mg Tablet 25 mg PO Q12HR 30 Days Qty: 60 12RF Date of admission: 06/06/25 16:39 Primary Care Provider: PHYSICIAN,HOG HANDLER Admitting Provider: Dudley Bolaños Attending physician on admission: Dudley Bolaños Condition: Stable Hospitalist MIPS Heart Failure (Exclusion) Patient has history of Heart Transplant or Left Ventricular Assistive Device?: No IF YES, STOP HERE Heart Failure (Qualifier) Patient has current or prior documentation of LVEF less than or equal to 40%, or mod/servere depressed LVSF?: No IF NO, STOP HERE
== END 2025-06-07 12:11 | disposition home or self-care (01) | DRG 322 ==
LOC: ANHED 14:36 → ANHIMU 15:16
PROVIDERS: Internal Medicine Interventional Cardiology; Student in an Organized Health Care Education/Training Program; Admitting Provider Internal Medicine; Emergency Provider Emergency Medicine; Visit Provider Internal Medicine
PROC: 4A023N7 Measurement of Cardiac Sampling and Pressure, Left Heart, Percutaneous Approach (ICD-10-PCS; CPT 93452; principal; 2025-06-06 11:30)
PROC: 027034Z Dilation of Coronary Artery, One Artery with Drug-eluting Intraluminal Device, Percutaneous Approach (ICD-10-PCS; CPT 92928; 2025-06-06 11:30)
PROC: 3E033GC Introduction of Other Therapeutic Substance into Peripheral Vein, Percutaneous Approach (ICD-10-PCS; 2025-06-06 11:30)
DX: I21.4 Non-ST elevation (NSTEMI) myocardial infarction (principal); I16.0 Hypertensive urgency; F17.210 Nicotine dependence, cigarettes, uncomplicated
CPT/HCPCS: 36415; 71046; 80053; 80061; 83036; 83690; 84484; 85025; 85610; 85730; 92978; 93005; 93306; 93458; 96374; 96375; 99291; A9270; C1725; C1753; C1769; C1874; C1887; C1894; C9600; G0378; J1644; J2003; J2250; J2305; J3010; J7040